=== PATIENT | female | born 1975 | race Caucasian/White ===

== ENCOUNTER 2021-07-17 19:03 | Emergency (ER) | payer SELFPAY ==
[~2021-07-17] VITALS: Ht 165.1 cm; Wt 63.5 kg
[~2021-07-17 19:03] MED LIST: APIX2.5 PO; DEC1 PO; LEVO-315 PO
[2021-07-17 19:11] VITALS: BP 160/109
[2021-07-17] MEDS ORDERED: ONDANSETRON 4 MG ODT PO ONE (19:20)
--- NOTE | 2021-07-17 19:26 | NUR ---
46YO/F BIB SELF W C/O N/V/D, GENERALIZED ABDOMINAL DISCOMFORT. PT ALSO REPORTS X1 EPISODE THIS MORNING OF ANXIETY W CHEST PALPITATIONS AND NAUSEA, TOOK PROPANALOL AND STARTED WITH V/D X1 HOUR LATER. PT ALSO REPORTS FEELING FATIGUE, FELT DIZZY EARLIER BUT NOT ANYMORE. PT DENIES ANY FEVERS, COUGH, CHEST PAIN, SOB, OR URINE SYMPTOMS. PT LAYING IN BED LOCKED IN LOWEST POSITION W X1 SIDERAIL. VSS, BREATHING EVEN AND UNLABORED. NAD NOTED, WILL CONTINUE TO MONITOR. PMH: DENIES ALLERGIES: DENIES
--- NOTE | 2021-07-17 20:00 | NUR ---
Dr. Carrasquillo examining patient.
[2021-07-17] MEDS ORDERED: KETOROLAC 60 MG/2 ML VIAL IM ONE (20:05)
[2021-07-17] MEDS ORDERED: ONDA8TAB87 PO (20:08)
[2021-07-17] MEDS ORDERED: LOPE-289 PO (20:08)
[2021-07-17] MEDS ORDERED: IBUP-2213 PO (20:08)
--- NOTE | 2021-07-17 20:11 | NUR ---
PT REQUESTING A COVID TEST D/T CONCERN FOR COVID SINCE SHE HAD COVID LAST YEAR, PT ALSO WONDERING IF SHE REQUIRES NS IV FLUIDS D/T THE V/D. ERMD MADE AWARE, PER ERMD PT DOES NOT REQUIRE COVID TEST OR IV FLUIDS AT THIS TIME.
--- NOTE | 2021-07-17 20:20 | NUR ---
PT TOLERATED WATER WELL, NO NAUSEA.
[2021-07-17 20:39] VITALS: BP 153/76
--- NOTE | 2021-07-17 20:39 | NUR ---
Patient discharged with v/s stable. Written and verbal after care instructions given and explained. Patient alert, oriented and verbalized understanding of instructions. Ambulatory with steady gait. All questions addressed prior to discharge. ID band removed. Patient advised to follow up with PMD. Rx of IBUPROFEN, LOPERAMIDE, ZOFRAN given. Patient educated on indication of medication including possible reaction and side effects. Opportunity to ask questions provided and answered.
== END 2021-07-17 20:39 | disposition home or self-care (01) ==
LOC: MED 19:03
DX: R11.2 Nausea with vomiting, unspecified (principal); R19.7 Diarrhea, unspecified; R10.12 Left upper quadrant pain; Z98.890 Other specified postprocedural states; Z79.2 Long term (current) use of antibiotics; Z79.01 Long term (current) use of anticoagulants; Z79.899 Other long term (current) drug therapy
CPT/HCPCS: 81002; 81025; 96372; 99283; J1885; Q0162